=== PATIENT | male | born 1970 | race Caucasian/White ===

== ENCOUNTER 2023-07-03 06:14 | Day surgery (SDC) | payer OTHER, SELFPAY ==
[2023-06-18 07:20] VITALS: BMI 29.8
[2023-07-03] VITALS (8 sets, daily range): BP systolic 114–136; BP diastolic 60–90
[2023-07-03] MEDS: TYLENOL 1000 MG PO (11:32)
[2023-07-03] MEDS: NORMOSOL-R 1000 IV (11:33)
--- NOTE | 2023-07-03 13:17 | W.SUR.PREOP ---
Pre-Operative Surgical Note
-
I have examined this patient prior to the performance of the scheduled procedure.
The patient's condition is unchanged from the time of the current History and
Physical and the patient is able to undergo the scheduled procedure.
--- NOTE | 2023-07-03 13:17 | W.IMMPOSTOP ---
Surgical Immed Post Op Note
-
Primary Surgeon: Soren Salinas MD
Assisting Surgeon: None
Pre-op Diagnosis: Right inguinal hernia
Post-op Diagnosis: Same
Procedure Performed: Robotic right inguinal hernia repair with mesh
Anesthesia Type: General
Specimen / Cultures: Right inguinal cord lipoma
Estimated Blood Loss: 3 cc
Complications: None
Operative Findings: Moderate sized indirect inguinal defect. No direct or femoral components. Medium cord lipoma resected. Floor reinforced with the large right Bard 3D max mid weight mesh.
POST OP PLAN:
Will discharge home after voiding.
--- NOTE | 2023-07-03 13:18 | OR.RPT ---
Operative Report
Operative Report
Patient Name: Aly Del iCd
: 1970
Date of Operation: 07/03/2023
Preoperative Diagnosis: Reducible Inguinal hernia, right
Postoperative Diagnosis: Same
Procedure(s):
Robotic right inguinal Hernia Repair with mesh, (STANISLAV approach)
Surgeon(s):
Dr. Salinas
Title Inspector(s):
PINA San
Anesthesia: General
Estimated Blood Loss: 3 cc
Urine Output: None
Drains/Lines/Implants: Large 3D Max Bard mid weight mesh
Specimens: Right inguinal cord lipoma
Indication for surgery: The patient has a history of groin pain and noted on exam to have a right inguinal Hernia. Following review of therapeutic options they has elected to undergo a minimally invasive repair.
Operative Findings: No hernia noted on the left. Moderate sized right indirect inguinal defect. No direct or femoral components. Medium cord lipoma resected. Floor reinforced with the large right Bard 3D max mid weight mesh.
Details of the operation:
The patient was brought to the Operating Room and placed in the supine position with the arms tucked. IV antibiotics were infused and Venodyne stockings placed. Following uneventful induction of general endotracheal anesthesia, an orogastric tube
were placed. The abdomen was prepped and draped in the usual sterile fashion. The abdomen was entered using a Veress technique which required 1 pass, pneumoperitoneum to 15 mmHg was obtained without difficulty. An 8mm trochar was passed through
the abdominal wall roughly 20 cm cephalad to the inguinal canal. We then confirmed that no inadvertent injury was made while passing the trocar or Veress needle. We then placed two additional 8 mm ports in the left upper and right upper quadrants.
We then docked the robot with a Prograsper in the left hand port and monopolar scissors in the right. No left inguinal hernia was noted. A moderate size right indirect inguinal defect was readily apparent. We then began by creating a flap at the
level of the ASIS laterally working our way medially to the medial umbilical fold. Staying onto the peritoneum we were able to circumferentially dissect around the hernia sac and and peel it off of the underlying spermatic cord and testicular
vessels, taking care to preserve them. Medially we identified the midline pubis as well as Vasu's ligament and ensured to dissect 2 cm below the pubic rim over the bladder. After exposure of the entire myopectineal orifice we identified and
reduced: A medium sized indirect inguinal hernia, no direct inguinal hernia, no femoral hernia, a medium cord lipoma that appeared to be emanating partially from the retroperitoneum/vessels was dissected back to near its origin and resected. A
right iliac lymph node was identified but not violated
We then fixated a large 3D max mesh with a 2-0 Vicryl stitch at coopers medially and superior laterally. The flap was then closed with a running 2-0 barbed monocryl suture ensuring that the tail was cut flush with the medial fat pad so that no
barbs were exposed. During the closure of the flap a suction cannula was inserted and 20 cc of quarter percent Marcaine was instilled. The area in the flap cavity was then evacuated of air confirming that the mesh was flush and there were no
folds. No rent in the peritoneum was noted. All needles and instruments were then removed and the robot was undocked. The abdomen was then desufflated, and pneumoperitoneum evacuated. All skin sites were then closed with 4-0 Monocryl followed by
Dermabond. Counts were correct and overall, the patient tolerated the procedure well and was taken to the Recovery Room postoperatively in stable condition.
Marilu was the attending physician and performed the procedure with assistance of the PA above. The assistance of PINA San was required due to the complexity of the procedure. During the procedure Mayela assisted with retraction, resection,
insertion of mesh and suture needles, changing instruments as well as extraction of the specimen and closure of the port sites. Marilu was present for all portions of the case excluding port closure.
Soren Salinas MD
[2023-07-03] MEDS: DILAUDID 0.25 MG IV (13:45)
== END 2023-07-03 15:20 | disposition home or self-care (01) ==
LOC: SDS 06:14
PROVIDERS: ATTENDING PHYSICIAN Surgery
DX: K40.90 Unilateral inguinal hernia, without obstruction or gangrene, not specified as recurrent (principal); D17.79 Benign lipomatous neoplasm of other sites
CPT/HCPCS: 49650; 88304; 36415; 93005; C1781

== ENCOUNTER → 2023-08-27 06:15 | Day surgery (SDC) | payer OTHER, SELFPAY | LOC: GI 06:15 | PROVIDERS: ATTENDING PHYSICIAN Surgery | DX: Z12.11 Encounter for screening for malignant neoplasm of colon (principal); Z80.0 Family history of malignant neoplasm of digestive organs; D12.3 Benign neoplasm of transverse colon; K63.5 Polyp of colon | CPT/HCPCS: 45385; 88305 ==

== ENCOUNTER 2023-09-04 21:28 | Emergency (ER) | payer OTHER, SELFPAY ==
[2023-09-04 21:31] VITALS: BP 136/82
[2023-09-04 21:52] VITALS: BMI 30.8
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
[2023-09-04] MEDS: CILOXAN 0.3% OPHTHALMIC SOLUTION 1 DROP OPHTH (22:31)
[2023-09-04 23:33] VITALS: BP 128/66
[2023-09-04] MEDS: ADACEL 0.5 ML IM (23:37)
== END 2023-09-04 23:49 | disposition home or self-care (01) ==
LOC: EMR 21:28
PROVIDERS: EMERGENCY PHYSICIAN Student in an Organized Health Care Education/Training Program; FAMILY PHYSICIAN Physician Assistant Medical
DX: H53.8 Other visual disturbances (principal); H21.02 Hyphema, left eye; S05.02XA Injury of conjunctiva and corneal abrasion without foreign body, left eye, initial encounter; S05.92XA Unspecified injury of left eye and orbit, initial encounter; W39.XXXA Discharge of firework, initial encounter; Z23 Encounter for immunization
CPT/HCPCS: 99284; 90471; 70480; 90715

== ENCOUNTER → 2024-01-05 13:23 | Outpatient (REF) | payer OTHER, SELFPAY | LOC: RAD 13:23 | PROVIDERS: ATTENDING PHYSICIAN Surgery | DX: R10.31 Right lower quadrant pain (principal) | CPT/HCPCS: 74177; Q9967 ==